=== PATIENT | female | born 1970 | race Caucasian/White ===

== ENCOUNTER 2017-10-24 11:54 | Emergency (ER) | payer BC ==
[2017-10-24 13:23] VITALS: BP 128/79
--- NOTE | 2017-10-24 13:46 | UC ---
Throat Pain/Nasal Drake HPI - HPI Summary HPI Summary: 47 Y/O female presents with upper respiratory symptoms x 1 week. Today C/O increased throat pain, chills and low grade fever. Denies nausea, vomiting or body aches. Blood pressure slightly elevated without history of hypertension. Medical history and medications reviewed at this visit. - History of Current Complaint Chief Complaint: UCGeneralIllness Stated Complaint: SORE THROAT Time Seen by Provider: 10/24/17 13:37 Hx Obtained From: Patient Hx Last Menstrual Period: 10/01/17 ?: No Onset/Duration: Gradual Onset Severity: Moderate Pain Intensity: 2 Pain Scale Used: 0-10 Numeric Associated Signs & Symptoms: Positive: Sinus Discomfort - Epiglottits Risk Factors Epiglottis Risk Factors: Negative - Allergies/Home Medications Allergies/Adverse Reactions: Allergies Allergy/AdvReac Type Severity Reaction Status Date / Time Penicillins Allergy Unknown Unknown Verified 10/24/17 13:22 Reaction Details Rofecoxib [From Vioxx] AdvReac Intermediate See Comment Verified 10/24/17 13:22 Home Medications: Home Medications Echinacea-Goldenseal [Echinacea & Goldenseal 250-250 mg] 3 applic PO BID PRN [History Confirmed 10/24/17] guaiFENesin ER TAB [Mucinex*] 1 tab PO BID PRN 10/24/17 [History Confirmed 10/24] PMH/Surg Hx/FS Hx/Imm Hx Previously Healthy: Yes - Surgical History Surgical History: Yes Surgery Procedure, Year, and Place: left knee repair after hiking accident; wisdom teeth - Social History Alcohol Use: Rare Substance Use Type: None Smoking Status (MU): Never Smoked Tobacco - Immunization History Most Recent Influenza Vaccination: Not UTD Review of Systems Constitutional: Fever, Chills Skin: Negative Eyes: Negative ENT: Sore Throat, Sinus Congestion Respiratory: Negative Cardiovascular: Negative Gastrointestinal: Negative Genitourinary: Negative Motor: Negative Neurovascular: Negative Musculoskeletal: Negative Neurological: Negative Psychological: Negative Is Patient Immunocompromised?: No All Other Systems Reviewed And Are Negative: Yes Physical Exam Triage Information Reviewed: Yes Appearance: Well-Appearing Vital Signs: Initial Vital Signs Temp 99.1 F 10/24/17 13:18 Pulse 80 10/24/17 13:18 Resp 20 10/24/17 13:18 BP 128/79 10/24/17 13:18 Pulse Ox 99 10/24/17 13:18 Vital Signs Reviewed: Yes Eye Exam: Normal ENT Exam: Other ENT: Positive: Pharyngeal erythema, Sinus tenderness Neck exam: Normal Neck: Positive: Enlarged Nodes @ - Cervical lymph node Respiratory Exam: Normal Respiratory: Positive: Lungs clear Cardiovascular Exam: Normal Cardiovascular: Positive: RRR Throat Pain/Nasal Course/Dx - Differential Dx/Diagnosis Differential Diagnosis/HQI/PQRI: Pharyngitis, Tonsillitis Provider Diagnoses: Upper respiratory viral infection Discharge - Discharge Plan Condition: Stable Disposition: HOME Patient Education Materials: Viral Syndrome (ED) Referrals: No Primary Care Phys,NOPCP [Primary Care Provider] - Additional Instructions: Your strep test was negative. Increase fluids and get plenty of rest. If symptoms continue, pain increases, or you have difficulty swallowing please follow up with your primary medical provider or return to Urgent Care.
== END 2017-10-24 14:13 | disposition home or self-care (01) ==
LOC: UCEAST 11:54
DX: J06.9 Acute upper respiratory infection, unspecified (principal); Z88.0 Allergy status to penicillin; Z88.8 Allergy status to other drugs, medicaments and biological substances
CPT/HCPCS: 87651; 99211; G0463

== ENCOUNTER 2017-11-13 12:09 | Emergency (ER) | payer BC ==
[2017-11-13 12:55] VITALS: BP 129/73
--- NOTE | 2017-11-19 23:06 | UC ---
Kumar English Angela, scribed for Shreya Soe MD on 11/13/17 at 1320 . General HPI - HPI Summary HPI Summary: This pt is a 47 y/o female presenting to [facility] c/o sore throat, coughing, sneezing, congestion, fever, diarrhea since 2016. She reports a few days ago she thought she was getting better. Pt woke up yesterday with a fever, sore throat, became more congested, rhinorrhea. She describes constant nasal clear drainage today. Pt notes that she additionally has ear ache, and left ear has been popping. She denies rash. Pt has sick contacts at home. - History of Current Complaint Chief Complaint: UCGeneralIllness Stated Complaint: FLU-LIKE SYMPTOMS Time Seen by Provider: 11/13/17 13:04 Hx Obtained From: Patient Hx Last Menstrual Period: 10/30/17 Onset/Duration: Lasting Weeks, Still Present Timing: Constant Current Severity: Moderate Pain Location at: bilateral ears Associated Signs & Symptoms: Positive: Cough, Diarrhea, Fever, Other - POS: congestion, nasal drainage NEG: rash - Allergy/Home Medications Allergies/Adverse Reactions: Allergies Allergy/AdvReac Type Severity Reaction Status Date / Time Penicillins Allergy Unknown Unknown Verified 11/13/17 12:55 Reaction Details Rofecoxib [From Vioxx] AdvReac Intermediate See Comment Verified 11/13/17 12:55 PMH/Surg Hx/FS Hx/Imm Hx Previously Healthy: Yes Other Endocrine History: DENIES: diabetes Other Cardiovascular History: DENIES: HTN - Surgical History Surgical History: Yes Surgery Procedure, Year, and Place: left knee repair after hiking accident; wisdom teeth - Family History Known Family History: Positive: Unknown - pt is adopted - Social History Alcohol Use: Rare Substance Use Type: None Smoking Status (MU): Never Smoked Tobacco - Immunization History Most Recent Influenza Vaccination: Not UTD Review of Systems Constitutional: Fever Skin: Negative Eyes: Negative ENT: Sore Throat, Ear Ache, Nasal Discharge Respiratory: Cough Cardiovascular: Negative Gastrointestinal: Diarrhea Genitourinary: Negative Motor: Negative Neurovascular: Negative Musculoskeletal: Negative Neurological: Negative Psychological: Negative All Other Systems Reviewed And Are Negative: Yes Physical Exam Triage Information Reviewed: Yes Appearance: Well-Nourished Vital Signs: Initial Vital Signs Temp 97.0 F 11/13/17 12:50 Pulse 98 11/13/17 12:50 Resp 18 11/13/17 12:50 BP 129/73 11/13/17 12:50 Pulse Ox 96 11/13/17 12:50 Vital Signs Reviewed: Yes Eye Exam: Normal ENT: Positive: Pharyngeal erythema - Posterior phaynx mild red, uvula midline, no appreciable sores, TM dull, Other - Left TM is gambino. Right TM is normal Neck: Positive: Supple, Nontender, No Lymphadenopathy Respiratory: Positive: Chest non-tender, Lungs clear, No respiratory distress, No accessory muscle use, Other: - + rhonchorus cough Cardiovascular: Positive: RRR, No Murmur, Pulses Normal, Brisk Capillary Refill Abdomen Description: Positive: Nontender, No Organomegaly, Soft Bowel Sounds: Positive: Present Musculoskeletal Exam: Normal Musculoskeletal: Positive: Strength Intact - moves all 4 ext's Neurological Exam: Normal - nonfocal, grossly intact Psychological Exam: Normal - conversing easily and appropriately Skin Exam: Normal - no visible or reported rash Course/Dx - Course Course Of Treatment: Rapid influenza A and B are negative. Reviewed with Ms. Breen results, coa, tx plan. Questions as posed answered to the best of my ability. - Differential Dx - Multi-Symptom Provider Diagnoses: URI / bronchitis Discharge - Discharge Plan Condition: Stable Disposition: HOME Prescriptions: Azithromyxin SAMARA (NF) [Z-Samara (Zithromax) 250 mg tabs #6] 2 tab PO .TODAY, THEN 1 DAILY #6 tab Patient Education Materials: Acute Bronchitis (ED) Forms: *Work Release Referrals: No Primary Care Phys,NOPCP [Primary Care Provider] - Additional Instructions: Please follow up with your primary care provider in 1-2 weeks. Seek medical attention for worse or new problems in the meantime. The documentation as recorded by the Kumar bergeron Angela accurately reflects the service I personally performed and the decisions made by me, Shreya Seo MD.
== END 2017-11-13 13:52 | disposition home or self-care (01) ==
LOC: UCEAST 12:09
DX: J06.9 Acute upper respiratory infection, unspecified (principal); J40 Bronchitis, not specified as acute or chronic; H92.09 Otalgia, unspecified ear; Z88.0 Allergy status to penicillin; Z88.8 Allergy status to other drugs, medicaments and biological substances
CPT/HCPCS: 87502; 99212; G0463